=== PATIENT | female | born 1960 | race Caucasian/White ===

== ENCOUNTER 2021-12-08 08:24 | Observation (INO) | payer BC ==
[2021-12-03 10:54] LABS: SARS-CoV-2 Antigen Rapid Res Negative (Negative)
[2021-12-03 10:58] LABS: Urine Clarity Clear (Clear); Urine Color Yellow (Yellow)
[2021-12-03 10:59] LABS: Urine Bilirubin NEGATIVE (Negative); Urine Blood Negative (Negative); Urine Glucose Negative (Negative); Urine Protein Negative (Negative); Urine Urobilinogen 0.2 mg/dL (0.2-1.0); Urine pH 6.5 (5.0-7.0)
[2021-12-04 15:35] LABS: Absolute Lymphocytes (CBC) 2.1 K/uL (0.7-4.9); Lymphocytes % 34.2 % (15.3-44.8); MCV 89.1 fL (80-100); MPV 7.3 fL (7.6-11.3); RBC Red Blood Cell Count 4.27 M/uL (3.86-4.86)
[2021-12-04 15:43] LABS: Protime INR 0.97
[2021-12-04 16:05] LABS: Albumin 3.5 g/dL (3.4-5.0); Bilirubin Total 0.2 mg/dL (0.2-1.0); Potassium 3.7 mmol/L (3.5-5.1); Protein, Total 6.7 g/dL (6.4-8.2)
[2021-12-08] MEDS ORDERED: Oxycodone HCl/Acetaminophen 1 TAB TAB ONE (08:50)
[2021-12-08] MEDS ORDERED: CELECOXIB 100 MG CAPSULE ONE (08:50)
[2021-12-08] MEDS ORDERED: GABAPENTIN 100 MG CAP ONE (08:50)
[2021-12-08] MEDS ORDERED: Ringers Lactate 1,000 ML IV ONE ×2 (08:51→11:11)
[2021-12-08] MEDS ORDERED: ACETAMINOPHEN 500 MG TAB ONE (08:51)
[2021-12-08] MEDS ORDERED: CEFAZOLIN 2 GM IN 0.9% NACL 2 GM/100 ML BAG ONE (08:51)
[2021-12-08] MEDS ORDERED: MIDAZOLAM HCL 2 MG/2 ML INJ ONE (09:14)
[2021-12-08] MEDS ORDERED: MORPHINE SULFATE/PF 1 MG/ML (10 ML AMP) ONE (09:51)
[2021-12-08] MEDS ORDERED: LIDOCAINE 2% MPF 5 ML VIAL ONE (09:55)
[2021-12-08] MEDS ORDERED: LIDOCAINE 1% MPF 5 ML VIAL ONE (09:55)
[2021-12-08] MEDS ORDERED: propofoL 200 MG/20 ML VIAL IV ONE ×4 (09:55→12:02)
[2021-12-08] MEDS ORDERED: EPINEPHRINE/PF 1 MG/ML AMP ONE (10:03)
[2021-12-08] MEDS ORDERED: TRANEXAMIC ACID 1,000 MG/10 ML VIAL IV ONE (10:06)
[2021-12-08] MEDS ORDERED: EPHEDRINE SULF 50 MG/ML VIAL ONE (10:34)
--- NOTE | 2021-12-08 12:19 | RAD REPORT ---
EXAM DESCRIPTION: - Hip in OR Left 1 View - 12/08/2021 11:46 am CLINICAL HISTORY: Left hip surgery FINDINGS: Intraoperative film demonstrates left hip prosthesis is in good position.
[2021-12-08] MEDS ORDERED: DOCUSATE NA 100 MG CAP PO PRN (12:41)
--- NOTE | 2021-12-08 12:51 | P.BOP ---
Preoperative diagnosis: Left hip arthritis Postoperative diagnosis: same Primary procedure: left total hip arthoplasty Estimated blood loss: 150 Anesthesia: General Transferred to: Recovery Room Condition: Good
--- NOTE | 2021-12-08 13:35 | OP ---
Date of Procedure: 12/08/2021 Surgeon: Pardeep Merchant MD Preoperative Diagnosis: Left hip severe osteoarthritis. Postoperative Diagnosis: Left hip severe osteoarthritis. Procedure: Left hip total hip arthroplasty using the Samm total hip system. Estimated Blood Loss: 150 cc. Complications: There were no complications. Indications For Operation: Ms. Merchant is a 61-year-old female, who I have not seen before other t [facility] as the patient. She came to see me with significant complaints of left hip pain. We tried to ma nage this medically in hopes that it was related to bursitis; however, she had continued and increase d pain. She does have arthritis on original x-rays. She also appeared to be developing some acetabu lar cyst. Discussed with her at that time total hip arthroplasty, but she wished to delay that and w as following her serial x-rays. It appeared that her cyst in the acetabular getting larger and her p ain is increasing. Therefore, she now decided she would like total hip arthroplasty. The risks, shane efits, and alternatives of procedure have been discussed with her. She states she understands things as presented and wished to proceed. Procedure In Detail: The patient was taken to the operating room and placed in supine position. Aft er spinal had been achieved, she was then appropriately positioned using hip positioner with her righ t side down. The left lower extremity was then prepped and draped in the usual sterile fashion for t he procedure. This was followed by standard posterolateral approach and was taken down carefully thr ough skin only meticulous hemostasis being maintained using Bovie electrocautery. This was then prog ressed through the adipose tissue until the fascia was encountered. A small stab wound was made in t he fascia and gluteal tendon was palpated to ensure the correct position. The fascial incision was t hen carried superiorly until near the tip of the greater trochanter where the gluteus loni muscles were identified. These were then gently divided using finger pressure. The sciatic nerve was then palpated and protected as the Charnley was placed. After this, the external rotators and capsule wer e then removed and tagged for later repair from the trochanter. The femoral head itself is seen, fou nd to be very arthritic, and the labrum was identified as well. After excellent visualization was ob tained, the hip was then dislocated and a standard saw-cut was then made. The head was then passed o ff and sized using ring gauges. The labrum as well as soft tissues were removed from the acetabulum and it is noted that the labrum is quite large posteriorly with some paucity of the posterior wall; h owever, definitely it did appear to be enough that it would be very stable. It is then deepened slig htly as there does appear to be slightly deep fossa and care was made not to deepen it too much. It was then sequentially reamed until the acetabulum is then appropriately sized in place and hammered a nd gently malleted into place and then more vigorously it appeared to be extremely solid and did not move with gentle movement of the senior solutions engineer or with a finger. Attention was then turned to the femur a nd the corrugated box machine operator was used as well as a slight amount of the lateralizing reamer. It was then broach ed. The broach appears to be quite tight even initially as she does have some dense cancellous bone. X-ray is called and the broaches are increased in size. This was performed until the x-rays availa ble and then an x-ray was taken. The cup itself appeared to have a little bit of prominence; however , did not really feel that I wanted to deepen it anymore, definitely appeared to have good coverage, and was absolutely stable to palpation. The stem on the x-ray does appear to be quite a bit small, w hich was expected at the time of the x-ray, but we will be able to increase the size. It was then in creased to a size 4 from a size 2, which was x-rayed. At this time, it appeared to be very stable wi th movement and felt that a size 5 would not be able to be placed. After this, the liner was then pl aced. It was then reduced with a standard ball as a trial and this was performed after the final destini m had been placed. The trial was stable to full flexion, adduction, and internal rotation to at leas t 45 degrees. Decided not to move forward with a high offset stem. Also does come to full extension , so I feel that the standard neck length is good. There was no lateral or inferior shuck with good range of motion. This was selected as the final size, which was then placed on the taper. It is aga in stable on all the above varus. The wound was irrigated and the external rotators and capsule were then repaired back to the greater trochanter via bone tunnels. It was again irrigated and the fasci a was closed back in a watertight fashion using heavy Vicryl sutures. It was again irrigated and the skin was closed using Vicryl followed by mera. The patient was then placed in Aquacel dressing and taken t o recovery room. ERNESTO Voice ID: [id number] Report ID: [id number]
[2021-12-08 13:48] LABS: Hematocrit 37.4 % (36.0-45.0)
[2021-12-08] MEDS ORDERED: ACETAMINOPHEN 500 MG TAB PO PRN (14:16)
[2021-12-08] MEDS ORDERED: HYDROCODONE/APAP 10/325 TAB PO PRN (14:26)
--- NOTE | 2021-12-08 14:29 | P.CNS ---
Date of Consult: 12/08/21 Reason for Consult: Medical management. Requesting Physician: Pardeep Merchant Chief Complaint: Left hip pain. History of Present Illness: Patient is a 61-year-old female with a past medical history significant for hypothyroidism, osteoarthritis who presents with complaint of left knee pain. Patient reported that she has been having left hip pain for the past 2 years and has attempted conservative treatment and other techniques without any relief in symptoms. Patient reported that pain has become worse over time and patient has been following up with her orthopedic surgeon. Patient agreed with orthopedic surgeon to perform a left total hip replacement today. Patient successfully had the procedure. Patient currently rates left hip pain as 5/10 in severity and described pain as in aching in quality. Patient denies any other signs or symptoms. Left hip pain is aggravated with movement and relieved with pain medication. Patient currently resting in bed with family at bedside. Allergies Sulfa (Sulfonamide Antibiotics) Allergy (Verified 12/08/21 08:59) Nausea/Vomiting Home Medications: Biotin 1 mg PO DAILY 12/03/21 Calcium Carbonate [Calcium] 600 mg PO DAILY 12/03/21 Docosahexanoic AC/Epa [Fish Oil 1,000 MG CAP] 1,000 mg PO BID 12/03/21 Levothyroxine [Synthroid] 0.5 tab PO [id number] 12/03/21 Multivitamin/Iron/Folic Acid [Centrum Adults Tablet] 1 each PO DAILY 12/03/21 - Past Medical/Surgical History Diabetic: No -: hypothyroid -: arthritis -: hibernoma, hypernoma removed right side neck -: tubal ligation -: lump removed rest breast - Family History Mother Medical History: Heart disease, Hypertension, Other (see notes) Notes: CHF, Parkinson's Sister Medical History: Cancer, Other (see notes) Notes: Lung cancer - Social History Smoking Status: Never smoker Alcohol use: No CD- Drugs: No Caffeine use: Yes Place of Residence: Home Review of Systems General: Unremarkable Eyes: Unremarkable ENT: Unremarkable Respiratory: Unremarkable Cardiovascular: Unremarkable Gastrointestinal: Unremarkable Genitourinary: Unremarkable Musculoskeletal: Other (Left hip pain ) Integumentary: Unremarkable Neurological: Unremarkable Lymphatics: Unremarkable Physical Examination Temp Pulse Resp BP Pulse Ox 97 F 64 19 101/60 12/08/21 13:08 12/08/21 14:08 12/08/21 14:08 12/08/21 14:08 General: Alert, Oriented x3, Cooperative HEENT: Atraumatic, Normocephalic, PERRLA Neck: JVD not distended Respiratory: Clear to auscultation bilaterally, Normal air movement Cardiovascular: Normal pulses, Regular rate/rhythm, Normal S1 S2 Capillary refill: <2 Seconds Gastrointestinal: Normal bowel sounds, Soft and benign Musculoskeletal: Tenderness Integumentary: No rashes, No breakdown, No significant lesion, Tenderness/swelling Neurological: Normal speech, Normal tone, Sensation intact Lymphatics: No axilla or inguinal lymphadenopathy Laboratory Data (last 24 hrs) 12/08/21 13:26: Hgb 12.4, Hct 37.4 Conclusions/Impression: --Left hip pain. Status post left total hip arthroplasty. Patient tolerated the procedure. Surgeon on board. PT eval and treat. Continue antibiotics per surgeon's recommendation. Continue supportive care. --Acute pain. We will manage pain with current pain medication regimen. --Hypothyroidism. Continue home medication. --CKD 2. Baseline functions unknown. We will continue to monitor renal functions. --Hypotension. Patient mildly hypotensive. Continue p.o. hydration. We will continue to monitor blood pressure levels. --DVT prophylaxis with SCDs. DVT with Lovenox subcu in tomorrow. Physician Review: Patient Assessed, Agree with Above Assessment and Plan Critical Care: No
[2021-12-08] MEDS: ONDANSETRON 4 MG/2 ML VIAL IV PRN (15:14)
--- OUTSIDE RECORDS SUMMARY | 2021-12-08 15:59 | XMS REPORT | Clinical Summary ---
:1960 Author Organization [facility] MD Rodriguez [facility] Address [address] [place] [address] Care Team Providers Name Role Phone Judi Delatorre MD Unavailable Horace Caceres MD Unavailable Josselin Steel Unavailable Judi Delatorre MD Primary Care Provider Allergies Active Allergy Reactions Severity Noted Date Comments Sulfa (Sulfonamide Antibiotics) 6 Medications Medication Sig Dispensed Refills Start Date End Date Status biotin 1 mg tablet Take by mouth 0 Active daily. CALCIUM CITRATE/VITAMIN Take by mouth 0 Active D3 (CALCIUM CITRATE + D daily. ORAL) FOLIC Take by mouth 0 Active ACID/MULTIVIT-MIN/LUTEIN daily. (CENTRUM SILVER ORAL) doxycycline (VIBRAMYCIN) Take 100 mg by 0 Active 100 MG capsule mouth daily. levothyroxine Take by mouth 0 Ac tive (SYNTHROID) 125 mcg daily. tablet magnesium oxide (MAOX) Take by mouth 0 Active 400 mg tablet twice daily. tamoxifen (NOLVADEX) 20 TAKE 1 TABLET BY 90 tablet 1 0 Active mg tabletIndications: MOUTH DAILY Solitary cyst of left breast Active Problems Problem Noted Date Tachycardia 05/18/2019 Hypothyroidism 04/07/2017 Atypical lobular hyperplasia of breast Surgical History Surgery Date Site/Laterality Comments TUBAL LIGATION EXCISION OF LESION OF 04/11/1999 - Right Hibernoa r emoved from R SCALP/NECK/HAND/FEET/GEN 04/10/2000 lower n alvin ITAL EXCISION OF LESION OF 04/11/2009 - Right hibernoma removed from SCALP/NECK/HAND/FEET/GEN 04/10/2010 right l ower neck ITAL Medical History Medical History Date Comments Disorder of thyroid gland hypothyroidism Rosacea Insomnia Menopausal symptom Migraine occasional Asthma h/o asthma as a chil d Gastroesophageal reflux disease Anxiety Chronic alcoholism in remission patient quit drinking in 2011 Herpes simplex of female genitalia Herpes zoster 2013 Tachycardia 05/18/2019 Family History Medical History Relation Name Comments Lung cancer Sister patient is unsur e if cancers are related Thyroid cancer Sister Relation Name Status Comments Sister Social History Tobacco Use Types Packs/Day Years Used Date Former Smoker Cigarettes 2 26 06/29/1972 - 0 06/29/1985 Alcohol Use Standard Drinks/Week Comments No 0 (1 standard drink = 0.6 oz pure alcoho l) former alcoholic; quit in 2011 Alcohol Habits Answer Date Recorded How often do you have a drink containing Not asked alcohol? How many drinks containing alcohol do Not asked you have on a typical day when you are drinking? How often do you have six or more drinks Not asked on one occasion? Comment: former alcoholic; quit in 2011 6 Sex Assigned at Date Recorded Not on file Obstetrics History Para Term AB IAB SAB Ectopic Multiple Living Live Births 5 2 3 Date Outcome GA Total Labor/2nd/3rd Weight Sex Delivery Anes PTL Karli A 1 A5 Name Clin Labor Para Para AB AB AB Comments Menarche: 11 OCP/HRT: >10 yrs/ >10 yrs Breast Feed: 12M Parity: 26 Last Filed Vital Signs Not on file Plan of Treatment Health Maintenance Due Date Last Done Comments COVID-19 Vaccination (#1) 10/01/1963 Results Not on fileafter 12/08/2020 Insurance Payer Benefit Plan / Subscriber ID Effective Dates Phone Addre ss Type Group [employer] [id number] 2017-Present [id number] [place] [address] [employer] [place] [id number] 2017-Present [id number] [place] [address] Guarantor Name Account Type Relation to Date of Phone Billing Patient Address Flaquito Merchant Personal/Family Self 1960 [address]) [place] [phone] (Work) [place] [address] Flaquito Merchant Personal/Family Self 1960 [address] [place] [phone]Work) [place] [address] Flaquito Merchant Personal/Family Self 1960 [address] [place] [address] 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
--- OUTSIDE RECORDS SUMMARY | 2021-12-08 15:59 | XMS REPORT | Continuity of Care Document ---
:1960 Author Organization [facility] t Address [address] [place] [address] Care Team Providers Name Role Phone KHRIS GUTIERREZ Primary Care Physician Unavailable Renu Marshall Attending Clinician Unavailable SYSTEM, PROVIDER NOT IN Attending Clinician Unavailable Problems Condition Condition Condition Status Onset Resolution Last Treating Co mments Source Name Details Category Date Date Treatment Clinician Date Tachycardi Tachycardi Disease Active 2019-0 U nivers a a 2-07 ity of 00:00: [place] 00 [facility] Hypothyroi Hypothyroi Disease Active 2016-04 U nivers dism dism 2-28 ity of 00:00: [place] 00 MD Gilmore [facility] Atypical Atypical Disease Active Unive rs lobular lobular ity of hyperplasi hyperplasi [place] a of a of breast breast [facility] Allergies, Adverse Reactions, Alerts Allergy Allergy Status Severity Reaction(s) Onset Inactive Treating Comm ents Source Name Type Date Date Clinician Sulfa Propensi Active Univers (Sulfona ty to 5-31 ity of mide adverse 00:00: [place] Antibiot reaction 00 ics) s [facility] Family History Family Member Diagnosis Comments Start Date Stop Date Source Natural sister Lung cancer [facility] [place] [facility] [place] L[facility] [place] Natural sister Thyroid cancer [facility] [place] [facility] Shell Canalaina r [place] Social History Social Habit Start Date Stop Date Quantity Comments Source History [facility] o f Alcohol Std Drinks [facility] History [facility] o f Alcohol Binge [place] MD Magda peck Cancer [place] History [facility] o f Alcohol Frequency [facility] Alcohol intake 2019-05-18 2019-05-18 Current University of 00:00:00 00:00:00 non-drinker of [place] MD Kelsi wyman alcohol [facility] (finding) History SDOH 2015-06-30 2015-06-30 former University o f Alcohol Comment 00:00:00 00:00:00 alcoholic; quit Brannon Shell in 2011 Cancer Center Cigarettes smoked 2015-06-30 2015-06-30 Univers ity of current (pack per 00:00:00 00:00:00 [place] Apryl Barboza [place] ) - Reported Cancer Ce nter Cigarette 2015-06-30 2015-06-30 University of pack-years 00:00:00 00:00:00 [place] MD Michael keith [facility] History of tobacco 1972-06-29 1985-06-29 Current smoker Un iversity of use 00:00:00 00:00:00 [place] MD Rodriguez [facility] Sex Assigned At [birth year] Universit [facility] 00:00:00 00:00:00 [place] MD Rodriguez [facility] Smoking Status Start Date Stop Date Source Ex-smoker 2015-06-30 00:00:00 2015-06-30 00:00:00 Universi ty of [facility] Medications Ordered Filled Start Stop Current Ordering Indication Dosage Frequency Signature Comments Components Source Medication Medication Date Date Medication? Clinician (SIG) Name Name biotin 1 mg 2020-0 Yes Take by Uni vers tablet 8-29 mouth ity of 06:27: daily. [place] 37 MD Deirdre mora [facility] Center CALCIUM 2020-0 Yes Take by Univers CITRATE/VIT 8-29 mouth ity of MARQUES D3 06:27: daily. [place] (CALCIUM 37 CITRATE + D Anderso ORAL) [facility] FOLIC 2020-0 Yes Take by Univers ACID/MULTIV 8-29 mouth ity of IT-MIN/LUTE 06:27: daily. Brannon evans [place] (CENTRUM 37 SILVER Anddeb ORAL) [facility] doxycycline 2020-0 Yes 100mg Take 100 U nivers (VIBRAMYCIN 8-29 mg by ity of ) 100 MG 06:27: mouth [place] capsule 37 daily. MD Deirdre mora [facility] levothyroxi 2020-0 Yes Take by Uni vers ne 8-29 mouth ity of (SYNTHROID) 06:27: daily. [place] 125 mcg 37 MD tablet Deirdre mora [facility] [place] magnesium 2020-0 Yes Take by Unive rs oxide 8-29 mouth ity of (MAOX) 400 06:27: twice [place] mg tablet 37 daily. MD Deirdre mora [facility] tamoxifen 2019-0 Yes Solitary TAKE 1 Un ronald (NOLVADEX) 6-12 cyst of TABLET BY i ty of 20 mg 00:00: left breast MOUTH [place] tablet 00 DAILY MD Deirdre mora [facility] [place] Procedures This patient has no known procedures. Plan of Care Planned Activity Planned Date Details Comments Source Future Scheduled 2021-11-20 COVID-19 Vaccination [facility] [place] Test 04:07:48 (#1) [code = COVID-19 Cancer Vaccination (#1)] Center Encounters Start End Encounter Admission Attending Care Care Encounter Source Date/Time Date/Time Type Type Clinicians Facility Department ID 2021-11-27 Outpatient [facility], Na [facility] [id number] 2 Common 08:07:01 [facility] 2021-10-05 Outpatient Marshall, Na [facility]LMLC STL[facility]C [id number] 2 Common 08:08:01 [facility] 2021-10-02 Outpatient Marshall, Na [facility]LMLC STL[facility]C [id number] 2 Common 11:00:00 [facility] 2021-09-25 Outpatient [facility], Na [facility]LMLC STL[facility]C [id number] 2 Common 09:41:01 [facility] 2021-08-26 Outpatient Marshall, Na [facility]LMLC STLMLC [id number] 2 Common 15:19:03 [facility] 2021-05-06 Outpatient Marshall, Na [facility]LMLC STLMLC [id number] 2 Common 14:25:30 [facility] 2021-05-06 Outpatient Marshall, Na STLMLC STLMLC [id number] 2 Common 14:24:31 [id number] [facility] 2021-05-06 Outpatient Marshall, Na [facility]LMLC STLMLC [id number] 2 Common 14:24:13 [id number] [facility] 2021-05-06 Outpatient [facility], Na [facility]LMLC STLMLC [id number] 2 Common 13:34:39 [id number] [facility] 2021-05-06 Outpatient [facility]LMLC STL[facility]C [id number] Common 13:29:05 [id number] [facility] 2019-11-14 Outpatient SYSTEM, [facility] [id number] 12:10:12 PROVIDER Venkatesh mora 2021-10-08 2021-10-08 ambulatory STLMLC STLMLC [id number] Common 00:00:00 00:00:00 [facility] 2021-10-07 2021-10-07 ambulatory STLMLC STLMLC [id number] Common 00:00:00 00:00:00 [facility] 2021-10-06 2021-10-06 ambulatory [facility]LMLC STLMLC [id number] Common 00:00:00 00:00:00 [facility] 2021-10-02 2021-10-02 ambulatory [facility]LMLC STLMLC [id number] Common 00:00:00 00:00:00 [facility] 2021-09-28 2021-09-28 ambulatory [facility]LMLC STLMLC [id number] Common 00:00:00 00:00:00 [facility] 2021-09-28 2021-09-28 ambulatory [facility]LMLC STLMLC [id number] Common 00:00:00 00:00:00 [facility] 2021-09-28 2021-09-28 ambulatory [facility]LMLC STLMLC [id number] Common 00:00:00 00:00:00 [facility] 2021-03-25 2021-03-25 ambulatory [facility]LMLC STLMLC [id number] Common 00:00:00 00:00:00 [facility] 2021-03-23 2021-03-23 ambulatory [facility]LMLC STLMLC [id number] Common 00:00:00 00:00:00 [facility] 2020-11-09 2020-11-09 Outpatient [facility]LMLC STLMLC [id number] Common 00:00:00 00:00:00 [facility] 2020-10-30 2020-10-30 Outpatient [facility]LMLC STLMLC [id number] Common 00:00:00 00:00:00 [facility] Results This patient has no known results.
[2021-12-08] MEDS: CEFAZOLIN 1 GM in NA CHLORIDE 0.9% 50 ML IVPB SCH (16:54)
[2021-12-08 17:17] LABS: Hematocrit 36.4 % (36.0-45.0)
[2021-12-08 17:34] VITALS: BMI 24.2
[2021-12-08] MEDS: HYDROCODONE/APAP 7.5/325 MG TAB PO PRN (21:40)
[2021-12-08] MEDS: DOCOSAHEXANOIC AC/EPA 1000 MG PO SCH (21:40)
[2021-12-09] MEDS: CEFAZOLIN 1 GM in NA CHLORIDE 0.9% 50 ML IVPB SCH ×2 (00:24→05:55)
[2021-12-09 05:37] LABS: Absolute Lymphocytes (CBC) 1.3 K/uL (0.7-4.9); Hematocrit 31.6 % (36.0-45.0); Lymphocytes % 20.3 % (15.3-44.8); MCV 90.2 fL (80-100); MPV 7.5 fL (7.6-11.3)
[2021-12-09 05:54] LABS: Potassium 4.1 mmol/L (3.5-5.1)
[2021-12-09] MEDS ORDERED: LEVOTHYROXINE SOD 0.125 MG TAB PO SCH (06:00)
--- NOTE | 2021-12-09 06:14 | P.PN ---
Date of Service: 12/09/21 Subjective: feeling well, pain controlled; ambulating with walker +Flatus, no shortness of breath, no chest pain ROS: 10 point ROS as noted above, otherwise negative Physical Exam: Gen: NAD, AOx3 HEENT: normal conjunctiva, sclera anicteric CV: regular rate & rhythm, no edema Pulm: non-labored respirations, clear bilaterally Abd: soft, non-tender, non-distended MSK: L hip slight discomfort with ROM, no hematoma Neuro: normal speech, normal affect, moves all extremities vitals reviewed Problem List s/p left total hip arthroplasty hypothyroidism CKDII Patient doing well ambulating with PT davidson remains - discontinue suspect patient will be ready to discharge home later today blood pressure overnight low-normal; patient without dizziness/lightheadedness overall doing well ok to be discharged home once cleared by ortho with home health/PT Time Spent Managing Pts Care (In Minutes): 35
[2021-12-09 08:32] VITALS: TEMP 97.7
[2021-12-09] MEDS ORDERED: HOME MED 1 EA UNK (Biotin [Biotin] 1 MG Capsule) PO SCH (09:00)
[2021-12-09] MEDS ORDERED: CALCIUM CARBONATE 500 MG TAB PO SCH (09:00)
[2021-12-09] MEDS ORDERED: HOME MED 1 EA UNK (Multivitamin/Iron/Folic Acid [Centrum Adults Tablet] Tablet) PO SCH (09:00)
[2021-12-09] MEDS ORDERED: HOME MED 1 EA UNK (Calcium Carbonate [Calcium] 600 MG Tablet) PO SCH (09:00)
[2021-12-09] MEDS ORDERED: ENOXAPARIN 40 MG/0.4 ML SQ SCH (09:00)
[2021-12-09] MEDS ORDERED: MULTIVITAMIN TAB PO SCH (09:00)
[2021-12-09] MEDS: DOCOSAHEXANOIC AC/EPA 1000 MG PO SCH (09:06)
[2021-12-09] MEDS: ONDANSETRON 4 MG/2 ML VIAL IV PRN (09:08)
[2021-12-09] MEDS: HYDROCODONE/APAP 7.5/325 MG TAB PO PRN (09:16)
[2021-12-09 14:02] VITALS: BP 112/51
[2021-12-09 17:34] VITALS: O2SAT 97
== END 2021-12-09 16:10 | disposition home health service (06) ==
LOC: OR 08:24 → INTOOBSV 12:41 → 4TH 12:41
PROVIDERS: ADMIT Orthopaedic Surgery; ATTEND Orthopaedic Surgery
PROC: 0SRB0JZ Replacement of Left Hip Joint with Synthetic Substitute, Open Approach (ICD-10-PCS; principal; 2021-12-08 10:15)
DX: M16.12 Unilateral primary osteoarthritis, left hip (principal); E03.9 Hypothyroidism, unspecified; N18.2 Chronic kidney disease, stage 2 (mild); I95.9 Hypotension, unspecified; Z79.899 Other long term (current) drug therapy; Z88.2 Allergy status to sulfonamides; Z20.822 Contact with and (suspected) exposure to COVID-19; Z82.49 Family history of ischemic heart disease and other diseases of the circulatory system; Z82.0 Family history of epilepsy and other diseases of the nervous system; Z80.1 Family history of malignant neoplasm of trachea, bronchus and lung
CPT/HCPCS: 27130; 85025 ×2; 80048; 36415 ×3; 86900; 86850; 85610; 86901; 88305; 88311; 85730; 85018 ×2; 85014 ×2; 81003; 80053; 73501; 97110; 97116 ×3; 97161; 97530 ×2; 87811; J2704 ×4; J0171; J1650; J2250; J0690 ×4; J7120 ×2; J2405 ×2; G0378; G0379